=== PATIENT | male | born 1985 | race Two or more races ===

== ENCOUNTER 2017-08-24 21:43 | Emergency (ER) | payer OTHER ==
[~2017-08-24] VITALS: Ht 170.2 cm; Wt 77.1 kg
[2017-08-24 21:56] VITALS: BP 123/69
== END 2017-08-24 22:56 | disposition home or self-care (01) ==
LOC: ER 21:53
DX: J06.9 Acute upper respiratory infection, unspecified (principal); F17.200 Nicotine dependence, unspecified, uncomplicated
CPT/HCPCS: 99283; 99406; A4606; Z7610